=== PATIENT | male | born 1955 | race Caucasian/White ===

== ENCOUNTER 2017-02-06 10:34 | Emergency (ER) | payer OTHER ==
[~2017-02-06] VITALS: Ht 190.5 cm; Wt 108.9 kg
[2017-02-06 10:44] VITALS: BP_SYST 133
[2017-02-06] MEDS ORDERED: NACL 0.9% 1,000 ML IV ONE ×2 (11:15→13:00)
[2017-02-06 11:31] LABS: HEMATOCRIT 39.3 % (36-54); LYMPHOCYTES # (AUTO) 0.4 K/uL (1.0-5.5); MONOCYTES # (AUTO) 0.6 K/uL (0.0-1.0)
[2017-02-06 11:37] LABS: EOSINOPHILS % (AUTO) 0.1 % (0.0-4.0); HEMOGLOBIN 13.3 g/dL (14.0-18.0); LYMPHOCYTES % (AUTO) 7.8 % (20.5-51.5); MEAN CORPUSCULAR HEMOGLOBIN 31 pg (27-31); MEAN CORPUSCULAR HGB CONC 34 % (32-36); MEAN CORPUSCULAR VOLUME 92 fL (79.0-98.0); MONOCYTES % (AUTO) 12.1 % (1.7-9.3); NEUTROPHILS % (AUTO) 76.5 % (40.0-70.0); RED BLOOD CELL COUNT(AUTO) 4.25 MIL/uL (4.2-6.2); RED CELL DISTRIBUTION WIDTH 13.4 % (9.0-15.0); WHITE BLOOD COUNT (AUTO) 4.7 K/uL (4.8-10.8)
[2017-02-06 11:49] LABS: CALCIUM 8.8 mg/dL (8.4-11.0); CREATININE 1.49 mg/dL (0.55-1.30); POTASSIUM 3.9 mmol/L (3.5-5.1)
[2017-02-06 11:50] LABS: INR 1.1 (0.80-1.20)
[2017-02-06 11:52] LABS: ALBUMIN 4.6 g/dL (3.4-4.8); FREE T4 (FREE THYROXINE) 0.8 ng/dL (0.6-1.6); TOTAL BILIRUBIN 2.6 mg/dL (0.0-1.0)
[2017-02-06 12:07] LABS: BASOPHILS # (AUTO) 0.1 K/uL (0.0-0.2); BASOPHILS % (AUTO) 1.5 % (0.0-2.0); NEUTROPHILS # (AUTO) 3.9 K/uL (1.8-7.7)
[2017-02-06 12:08] LABS: PLATELET COUNT (AUTO) 21 K/uL (130-430)
[2017-02-06] MEDS ORDERED: ACETAMINOPHEN 500 MG TABLET PO ONE (13:30)
[2017-02-06] MEDS ORDERED: PIPERACILLIN/TAZO 3.375 GM in NS 50 ML IV ONE (13:30)
[2017-02-06 13:31] LABS: BILIRUBIN,URINE NEGATIVE (NEGATIVE); BLOOD, URINE NEGATIVE (NEGATIVE); CLARITY/URINE CLEAR (CLEAR); COLOR,URINE YELLOW (YELLOW); GLUCOSE,URINE NEGATIVE (NEGATIVE); KETONES,URINE NEGATIVE (NEGATIVE); LEUKOCYTE ESTERASE ,URINE NEGATIVE (NEGATIVE); NITRITE, URINE NEGATIVE (NEGATIVE); PH,URINE 5.5 (5.0-8.0); PROTEIN URINE TRACE (NEGATIVE); UROBILINOGEN,URINE 0.2 (0.2-1.0)
[2017-02-06] MEDS ORDERED: PIPERACILLIN/TAZOBACTAM 3.375 GM/VIAL (ZOSYN) IV ONE (13:41)
[2017-02-06] MEDS ORDERED: cloNIDine HCL 0.1 MG TABLET PO ONE (13:45)
[2017-02-06 17:30] VITALS: BP_SYST 136
== END 2017-02-06 17:30 | disposition short-term general hospital (02) ==
LOC: SED 10:34
DX: R50.9 Fever, unspecified (principal); D69.6 Thrombocytopenia, unspecified
CPT/HCPCS: 36415; 71010; 74000; 80053; 81003; 82140; 83605; 83880; 84439; 84484; 85025; 85610; 87040; 93005; 96361; 96365; 99285; J2543; J7030